=== PATIENT | female | born 2000 | race Caucasian/White ===

== ENCOUNTER 2023-04-28 21:46 | Inpatient (IN) ==
[2023-04-28] MEDS ORDERED: IPRATROPIUM/ALBUTEROL 3 ML AMPUL.NEB NEB ONE (21:54)
[2023-04-28] MEDS ORDERED: methylPREDNISolone SOD SUCC 125 MG/2 ML VIAL IV ONE (21:54)
[2023-04-28] MEDS ORDERED: LORazepam 2 MG/ML VIAL IV ONE (21:54)
[2023-04-28] MEDS ORDERED: 0.9 % SODIUM CHLORIDE 1,000 ML IV ONE ×2 (21:54→23:50)
[2023-04-28] MEDS ORDERED: ONDANSETRON 4 MG/2 ML VIAL IV ONE (21:54)
[2023-04-28] MEDS: IPRATROPIUM/ALBUTEROL 3 ML AMPUL.NEB NEB ONE ×2 (21:56→22:11)
[2023-04-28 23:06] LABS: Basophils % (Auto) 0.6 % (0.0-2.0); Eosinophils # (Auto) 0.72 K/mcL (0.00-0.70); Eosinophils % (Auto) 4.4 % (0.0-7.0); Hematocrit 40.1 % (34.1-44.9); Hemoglobin 13.2 g/dL (11.2-15.7); Lymphocytes # (Auto) 2.29 K/mcL (1.50-4.80); Lymphocytes % (Auto) 13.9 % (15.5-49.0); Mean Cell Volume 89.1 fL (80.0-100.0); Mean Corpuscular HGB Conc 32.9 g/dL (31.0-36.0); Mean Platelet Volume 9.4 fL (8.8-12.5); Monocytes % (Auto) 6.1 % (1.0-12.0); Neutrophils % (Auto) 74.5 % (38.0-78.0); Platelet Count 370 K/mcL (140-440); Red Cell Distribution Width 12.5 % (11.5-14.5); WBC 16.4 K/mcL (4.5-11.0)
[2023-04-28 23:09] LABS: HCG,Serum Negative
[2023-04-28] MEDS ORDERED: RACEPINEPHRINE 0.5 ML AMPUL.NEB NEB ONE (23:48)
[2023-04-28] MEDS ORDERED: MAGNESIUM SULFATE 2 GM/50 ML BAG IV ONE (23:49)
[2023-04-29] MEDS ORDERED: IPRATROPIUM/ALBUTEROL 3 ML AMPUL.NEB NEB ONE ×2 (02:40→03:04)
[2023-04-29] MEDS ORDERED: 0.9 % SODIUM CHLORIDE 1,000 ML IV ONE (02:41)
[2023-04-29] MEDS ORDERED: RACEPINEPHRINE 0.5 ML AMPUL.NEB NEB ONE ×2 (02:50→07:40)
[2023-04-29 05:14] LABS: Blood Urea Nitrogen 9 mg/dL (6-20); Calcium 9.4 mg/dL (8.6-10.4); Carbon Dioxide 19 mmol/L (22-30); Chloride 103 mmol/L (96-108); Glomerular Filtration Rate 123; Glucose 111 mg/dL (70-105)
[2023-04-29] MEDS ORDERED: LORazepam 1 MG TABLET PO ONE (05:33)
[2023-04-29] MEDS ORDERED: ALBUTEROL SULFATE 2.5 MG/3 ML NEBULIZER NEB ONE (05:33)
[2023-04-29] MEDS ORDERED: TERBUTALINE 1 MG/ML VIAL SQ ONE (05:36)
[2023-04-29] MEDS ORDERED: LORazepam 2 MG/ML VIAL IV ONE (07:40)
[2023-04-29] MEDS ORDERED: METOPROLOL TARTRATE 5 MG/5 ML VIAL IV PRN (09:31)
[2023-04-29] MEDS ORDERED: LACTULOSE 20 GM/30 ML ORAL.SOL PO PRN (09:31)
[2023-04-29] MEDS ORDERED: SENNOSIDES 1 TABLET PO PRN (09:31)
[2023-04-29] MEDS ORDERED: ONDANSETRON 4 MG/2 ML VIAL IV PRN (09:31)
[2023-04-29] MEDS ORDERED: LEVALBUTEROL 1.25 MG/3 ML AMPUL.NEB ONE (09:39)
[2023-04-29] MEDS: DOCUSATE SODIUM 100 MG CAPSULE PO SCH ×2 (10:00→20:44)
[2023-04-29] MEDS: 0.9 % SODIUM CHLORIDE 10 ML SYRINGE IV SCH ×3 (10:00→20:43)
[2023-04-29] MEDS: ENOXAPARIN 40 MG/0.4 ML SYRINGE SQ SCH (10:00)
[2023-04-29] MEDS: LORazepam 2 MG/ML VIAL IV PRN ×2 (10:01→14:38)
[2023-04-29] MEDS ORDERED: METOCLOPRAMIDE 10 MG/2 ML VIAL IV PRN (10:37)
[2023-04-29] MEDS: ALPRAZolam 0.5 MG TABLET PO PRN (10:51)
[2023-04-29] MEDS: LEVALBUTEROL 1.25 MG/3 ML AMPUL.NEB NEB SCH ×4 (11:04→22:20)
[2023-04-29] MEDS: guaiFENesin/DEXTROMETHORPHAN 5ML UD CUP PO PRN (12:37)
[2023-04-29] MEDS: methylPREDNISolone SOD SUCC 125 MG/2 ML VIAL IV SCH (13:42)
[2023-04-29] MEDS ORDERED: LEVALBUTEROL 1.25 MG/3 ML AMPUL.NEB NEB PRN (17:43)
[2023-04-29] MEDS ORDERED: diphenhydrAMINE 50 MG/ML VIAL IV PRN (19:21)
[2023-04-29] MEDS: BUDESONIDE 0.5 MG/2 ML AMPUL.NEB NEB SCH (20:22)
[2023-04-29] MEDS: ACETAMINOPHEN 325 MG TABLET PO PRN (20:39)
[2023-04-29] MEDS: FLUoxetine HCL 20 MG CAPSULE PO SCH (20:44)
[2023-04-30] MEDS: methylPREDNISolone SOD SUCC 125 MG/2 ML VIAL IV SCH ×4 (01:21→23:16)
[2023-04-30] MEDS: 0.9 % SODIUM CHLORIDE 10 ML SYRINGE IV SCH ×5 (01:23→23:17)
[2023-04-30] MEDS: BECLOMETHASONE DIPROPIONATE 80 MCG INH SCH ×3 (01:26→21:52)
[2023-04-30] MEDS: ACETAMINOPHEN 325 MG TABLET PO PRN ×2 (01:33→21:51)
[2023-04-30] MEDS: LEVALBUTEROL 1.25 MG/3 ML AMPUL.NEB NEB SCH ×6 (03:03→22:21)
[2023-04-30] MEDS: BUDESONIDE 0.5 MG/2 ML AMPUL.NEB NEB SCH (07:02)
[2023-04-30 07:04] LABS: Basophils # (Auto) 0.01 K/mcL (0.00-0.30); Basophils % (Auto) 0.1 % (0.0-2.0); Eosinophils # (Auto) 0 K/mcL (0.00-0.70); Eosinophils % (Auto) 0 % (0.0-7.0); Hematocrit 39.9 % (34.1-44.9); Hemoglobin 12.8 g/dL (11.2-15.7); Lymphocytes # (Auto) 0.68 K/mcL (1.50-4.80); Lymphocytes % (Auto) 3.8 % (15.5-49.0); Mean Cell Volume 92.6 fL (80.0-100.0); Mean Corpuscular HGB Conc 32.1 g/dL (31.0-36.0); Mean Platelet Volume 9.7 fL (8.8-12.5); Monocytes # (Auto) 0.38 K/mcL (0.10-0.90); Monocytes % (Auto) 2.1 % (1.0-12.0); Neutrophils % (Auto) 93.3 % (38.0-78.0); Platelet Count 391 K/mcL (140-440); RBC 4.31 M/mcL (3.59-5.38); Red Cell Distribution Width 12.9 % (11.5-14.5); WBC 18.1 K/mcL (4.5-11.0)
[2023-04-30] MEDS ORDERED: PANTOPRAZOLE 40 MG VIAL IV SCH (07:30)
[2023-04-30] MEDS: DOCUSATE SODIUM 100 MG CAPSULE PO SCH ×2 (07:47→21:50)
[2023-04-30] MEDS: ENOXAPARIN 40 MG/0.4 ML SYRINGE SQ SCH (07:48)
[2023-04-30] MEDS: PANTOPRAZOLE 40 MG TABLET PO SCH (07:48)
[2023-04-30 08:18] LABS: ALT/SGPT 12 U/L (<40); AST/SGOT 19 U/L (<32); Albumin 4.1 gm/dL (3.2-5.2); Albumin/Globulin Ratio 1.2 (1.0-2.3); Alkaline Phosphatase 74 U/L (39-117); Bilirubin,Total 0.3 mg/dL (0.1-1.0); Blood Urea Nitrogen 12 mg/dL (6-20); Calcium 9.7 mg/dL (8.6-10.4); Carbon Dioxide 21 mmol/L (22-30); Chloride 99 mmol/L (96-108); Globulin 3.3 gm/dL (2.2-3.7); Glomerular Filtration Rate 130; Glucose 136 mg/dL (70-105)
[2023-04-30] MEDS: METOPROLOL TARTRATE 25 MG TABLET PO SCH ×2 (09:43→21:50)
[2023-04-30] MEDS: FLUoxetine HCL 20 MG CAPSULE PO SCH (21:50)
[2023-04-30] MEDS ORDERED: methylPREDNISolone SOD SUCC 125 MG/2 ML VIAL ONE (23:11)
[2023-04-30] MEDS: ALPRAZolam 0.5 MG TABLET PO PRN (23:12)
[2023-04-30] MEDS: guaiFENesin/DEXTROMETHORPHAN 5ML UD CUP PO PRN (23:12)
[2023-05-01] MEDS: LEVALBUTEROL 1.25 MG/3 ML AMPUL.NEB NEB SCH ×3 (02:33→11:00)
[2023-05-01] MEDS: 0.9 % SODIUM CHLORIDE 10 ML SYRINGE IV SCH (05:50)
[2023-05-01 06:51] LABS: Basophils # (Auto) 0.01 K/mcL (0.00-0.30); Basophils % (Auto) 0.1 % (0.0-2.0); Eosinophils # (Auto) 0 K/mcL (0.00-0.70); Eosinophils % (Auto) 0 % (0.0-7.0); Hemoglobin 12.8 g/dL (11.2-15.7); Lymphocytes # (Auto) 1.12 K/mcL (1.50-4.80); Lymphocytes % (Auto) 6.4 % (15.5-49.0); Mean Cell Volume 90.3 fL (80.0-100.0); Mean Corpuscular HGB Conc 32.8 g/dL (31.0-36.0); Mean Platelet Volume 9.5 fL (8.8-12.5); Monocytes # (Auto) 0.68 K/mcL (0.10-0.90); Monocytes % (Auto) 3.9 % (1.0-12.0); Neutrophils % (Auto) 88.5 % (38.0-78.0); Platelet Count 426 K/mcL (140-440); RBC 4.32 M/mcL (3.59-5.38); WBC 17.6 K/mcL (4.5-11.0)
[2023-05-01 07:13] LABS: ALT/SGPT 13 U/L (<40); AST/SGOT 12 U/L (<32); Albumin 3.8 gm/dL (3.2-5.2); Albumin/Globulin Ratio 1.2 (1.0-2.3); Alkaline Phosphatase 66 U/L (39-117); Bilirubin,Total 0.3 mg/dL (0.1-1.0); Blood Urea Nitrogen 20 mg/dL (6-20); Calcium 9.5 mg/dL (8.6-10.4); Carbon Dioxide 22 mmol/L (22-30); Chloride 102 mmol/L (96-108); Globulin 3.2 gm/dL (2.2-3.7); Glomerular Filtration Rate 123; Glucose 136 mg/dL (70-105)
[2023-05-01] MEDS: DOCUSATE SODIUM 100 MG CAPSULE PO SCH (07:50)
[2023-05-01] MEDS: methylPREDNISolone SOD SUCC 125 MG/2 ML VIAL IV SCH (07:50)
[2023-05-01] MEDS: PANTOPRAZOLE 40 MG TABLET PO SCH (07:50)
[2023-05-01] MEDS: METOPROLOL TARTRATE 25 MG TABLET PO SCH (07:50)
[2023-05-01] MEDS: ENOXAPARIN 40 MG/0.4 ML SYRINGE SQ SCH (07:51)
[2023-05-01] MEDS: BECLOMETHASONE DIPROPIONATE 80 MCG INH SCH (08:00)
[2023-05-01] MEDS ORDERED: PNEUMOCOCCAL 23-VAL P-SAC VAC 0.5 ML SYRINGE IM ONE (09:00)
== END 2023-05-01 12:20 | disposition home or self-care (01) | DRG 202 ==
LOC: ED 21:46 → ICU 04-29 08:55
PROVIDERS: ADMIT Internal Medicine; ATTEND Internal Medicine